=== PATIENT | male | born 1985 | race Hispanic/Latino ===

== ENCOUNTER 2022-05-26 12:32 | Emergency (ER) | payer SELFPAY ==
[2022-05-26] MEDS ORDERED: EPINEPHrine 1 MG/10 ML Abboject SYRINGE ONE (12:36)
[2022-05-26] MEDS ORDERED: NOREPINEPHRINE 8 MG/250 ML-D5W 250 ML ONE (12:44)
[2022-05-26] MEDS ORDERED: EPINEPHrine 1 MG/ML VIAL ONE (13:11)
[2022-05-26 13:34] LABS: #Basophils 0.1 thou/uL (0.0-0.2); #Eosinphils 0.1 thou/uL (0.0-0.7); #Lymphocytes 4.5 thou/uL (1.20-3.40); #Monocytes 0.8 thou/uL (0.11-0.59); #Neutrophils 4.1 thou/uL (1.40-6.50); %Basophils 1.3 % (0.0-1.0); %Lymphocytes 46.5 % (21.0-51.0); %Monocytes 8.6 % (0.0-10.0); %Neutrophils 42.6 % (42.0-75.0); Hemoglobin 15.8 g/dL (14.0-18.0); Mean Corpuscular HGB CONC 31.6 g/dL (32.0-36.0); Mean Platelet Volume 7.3 fL (7.4-10.4); Platelet Count 294 thou/uL (130-400); RBC Distribution Width 12.8 % (11.5-14.5); Red Blood Cell (RBC) Count 4.93 mill/uL (4.70-6.10); White Blood Cell (WBC) Count 9.6 thou/uL (4.8-10.8)
[2022-05-26 13:44] LABS: INR-International Normal Ratio 1.1; PTT 26.7 sec (22.9-36.1); Prothrombin Time 14.6 sec (12.0-14.7)
[2022-05-26 13:53] LABS: ALT (SGPT) 116 U/L (8-55); AST (SGOT) 163 U/L (5-34); Albumin 4.5 g/dL (3.5-5.0); Alkaline Phosphatase 85 U/L (40-110); Anion Gap 38 mmol/L (10-20); BUN (Urea Nitrogen) 6 mg/dL (8.9-20.6); Bilirubin, Total 0.4 mg/dL (0.2-1.2); Calc. Creatinine Clearance 0 mL/min (70-130); Carbon Dioxide 13 mmol/L (22-29); Chloride 101 mmol/L (98-107); Estimated GFR 61; Globulin 3.7 g/dL (2.4-3.5); Glucose 224 mg/dL (70-105); Magnesium 3.7 mg/dL (1.6-2.6); Potassium 5.2 mmol/L (3.5-5.1); Protein, Total 8.2 g/dL (6.0-8.3); Sodium 147 mmol/L (136-145)
[2022-05-26] MEDS ORDERED: HYDROcodone/Acetaminophen 5/325 mg Tablet PO PRN (13:55)
[2022-05-26] MEDS ORDERED: Ondansetron PF 4 MG/2 ML Vial IVP PRN (13:55)
[2022-05-26] MEDS ORDERED: Acetaminophen 325 MG TAB PO PRN (13:55)
[2022-05-26 14:01] LABS: Actual Bicarbonate (HCO3a) 8.4 mEq/L (22-28); Analyzer IN Cardio ER; Base Excess (BEa) -27.9 mEq/L (-2.0 to +3.0); CO2 Tension 61.1 mmHg (35.0-45.0); Calcium, Ionized (arterial) 1.21 mmol/L (1.12-1.30); Carboxyhemoglobin (COHb) 2.2 gm% (0.0-3.0); Hemoglobin (Hb) 15.9 g/dL (14.0-18.0); O2 Tension (PaO2), arterial 298.4 mmHg (80.0-100.0); pH, Arterial 6.76 (7.35-7.45)
[2022-05-26 14:02] LABS: ALV-art Gradient 195.625 mmHg (0-20); Puncture Site Arterial Line
[2022-05-26] MEDS ORDERED: Sodium Bicarbonate 150 MEQ in Dextrose 5% in Water 1,000 ML IV SCH ×2 (14:30→16:30)
[2022-05-26] MEDS ORDERED: Piperacillin/Tazobactam 3.375 GM in Sodium Chloride 0.9% 100 ML IVPB SCH ×2 (14:30→16:00)
[2022-05-26] MEDS ORDERED: Dextrose 50% Abboject 50 ML SYRINGE SLOW IVP PRN (14:31)
[2022-05-26] MEDS ORDERED: Dextrose 5% in Water 1,000 ML IV PRN (14:31)
[2022-05-26] MEDS ORDERED: Iopamidol-370 76% 500 ML 1 ML ONE (14:35)
[2022-05-26] MEDS ORDERED: Calcium Chloride 1 GM/10 ML Abboject SYRINGE ONE (15:06)
[2022-05-26] MEDS: Sodium Bicarb 50 MEQ/50 ML VIAL ONE (15:10)
[2022-05-26] MEDS ORDERED: Sodium Bicarb 50 MEQ/50 ML Abboject 8.4% SYRINGE IVP SCH (15:15)
[2022-05-26 15:26] LABS: Bacteria/HPF 2+ HPF (None Seen); Bilirubin Negative (Negative); Blood, Urine 3+ (Negative); Clarity Cloudy (Clear); Glucose, Urine (Dipstick) Normal (Negative); Ketone, Urine Trace mg/dL (Negative); Leukocyte Negative Leu/uL (Negative); Nitrite Negative (Negative); Protein, Urine (Dipstick) 100 mg/dL (Neg-Trace); RBC/HPF 0-3 HPF (0-3); Specific Gravity, Urine 1.033 (1.002-1.036); Squamous Epithelial 0-3 HPF (0-3); Urobilinogen Normal mg/dL (Less than 2)
[2022-05-26 15:27] LABS: Urine Culture Reflex Yes Yes
[2022-05-26 15:33] LABS: Amphetamine Not Detected (NotDetected); Barbiturates Screen Not Detected (NotDetected); Benzodiazepine Screen Not Detected (NotDetected); Cocaine Metabolite Screen Not Detected (NotDetected); Methadone Not Detected (NotDetected); Methamphetamine Not Detected (NotDetected); Opiate Screen Not Detected (NotDetected); Oxycodone Screen Not Detected (NotDetected); Phencyclidine (PCP) Not Detected (NotDetected); THC/Cannabinoid Screen Detected (NotDetected); Tricyclic Screen Not Detected (NotDetected)
[2022-05-26] MEDS ORDERED: Calcium Chloride 1 GM/10 ML Abboject SYRINGE IVP SCH (16:00)
[2022-05-26 16:47] LABS: Creatinine, Urine 38.52 mg/dL (63-166)
[2022-05-26] MEDS ORDERED: Sodium Bicarb 50 MEQ/50 ML VIAL IVP SCH ×2 (18:00→18:45)
[2022-05-26 18:02] LABS: Actual Bicarbonate (HCO3a) 28.5 mEq/L (22-28); Base Excess (BEa) -1.7 mEq/L (-2.0 to +3.0); Calcium, Ionized (arterial) 1.02 mmol/L (1.12-1.30); Carboxyhemoglobin (COHb) 0.3 gm% (0.0-3.0); Hemoglobin (Hb) 17.9 g/dL (14.0-18.0); O2 Tension (PaO2), arterial 94.1 mmHg (80.0-100.0); Potassium - ABG Lab 4.42 mmol/L (3.70-5.30)
[2022-05-26 18:03] LABS: CO2 Tension 70.7 mmHg (35.0-45.0); Puncture Site Arterial Line; pH, Arterial 7.22 (7.35-7.45)
[2022-05-26 18:04] LABS: ALV-art Gradient 530.525 mmHg (0-20)
[2022-05-26 18:10] LABS: Lactic Acid 11.2 mmol/L (0.5-2.2)
[2022-05-26] MEDS ORDERED: Sodium Chloride 0.9% 500 ML IV SCH (18:30)
[2022-05-26] MEDS: NOREPINEPHRINE 8 MG/250 ML-D5W 250 ML IVPB SCH ×2 (18:30→20:44)
[2022-05-26] MEDS: Sodium Bicarbonate 150 MEQ in Dextrose 5% in Water 1,000 ML IV SCH (18:31)
[2022-05-26] MEDS ORDERED: Refresh Lacri-lube Opth Oint 7 GM TUBE EA EYE PRN (19:24)
[2022-05-26] MEDS: Piperacillin/Tazobactam 3.375 GM in Sodium Chloride 0.9% 100 ML IVPB SCH (19:57)
[2022-05-26 20:09] LABS: Lactic Acid 11.2 mmol/L (0.5-2.2)
[2022-05-26 20:18] LABS: Anion Gap 28 mmol/L (10-20); BUN (Urea Nitrogen) 15 mg/dL (8.9-20.6); Calc. Creatinine Clearance 61 mL/min (70-130); Calcium 7.9 mg/dL (7.8-10.44); Carbon Dioxide 21 mmol/L (22-29); Chloride 101 mmol/L (98-107); Estimated GFR 41; Glucose 102 mg/dL (70-105); Sodium 146 mmol/L (136-145)
[2022-05-26] MEDS: Vasopressin 20 UNIT, Admixture Fee 1 EACH in Sodium Chloride 0.9% 50 ML IV SCH (20:46)
[2022-05-26] MEDS: EPINEPHrine 4 MG in Dextrose 5% in Water 250 ML IV SCH (20:47)
[2022-05-26] MEDS ORDERED: Famotidine/PF 20 mg/2ml Vial SLOW IVP SCH (21:00)
[2022-05-27] MEDS: HumaLOG 300 UNITS/3 ML VIAL SC PRN ×3 (00:40→10:31)
[2022-05-27] MEDS: Sodium Bicarbonate 150 MEQ in Dextrose 5% in Water 1,000 ML IV SCH ×2 (00:56→16:15)
[2022-05-27] MEDS: NOREPINEPHRINE 8 MG/250 ML-D5W 250 ML IVPB SCH ×5 (01:01→16:30)
[2022-05-27] MEDS: Vasopressin 20 UNIT, Admixture Fee 1 EACH in Sodium Chloride 0.9% 50 ML IV SCH ×3 (02:38→17:30)
[2022-05-27] MEDS: Piperacillin/Tazobactam 3.375 GM in Sodium Chloride 0.9% 100 ML IVPB SCH ×3 (03:09→19:31)
[2022-05-27 04:52] LABS: Hemoglobin 16.4 g/dL (14.0-18.0); Mean Corpuscular HGB CONC 32.7 g/dL (32.0-36.0); Mean Corpuscular Hemoglobin 31.5 pg (27.0-31.0); Mean Corpuscular Volume 96.3 fL (78.0-98.0); Mean Platelet Volume 7.3 fL (7.4-10.4); Platelet Count 139 thou/uL (130-400); RBC Distribution Width 12.7 % (11.5-14.5); Red Blood Cell (RBC) Count 5.21 mill/uL (4.70-6.10); White Blood Cell (WBC) Count 9.4 thou/uL (4.8-10.8)
[2022-05-27 05:12] LABS: Lactic Acid 5.2 mmol/L (0.5-2.2)
[2022-05-27 05:17] LABS: ALT (SGPT) 224 U/L (8-55); AST (SGOT) 692 U/L (5-34); Albumin 3.4 g/dL (3.5-5.0); Alkaline Phosphatase 66 U/L (40-110); Anion Gap 21 mmol/L (10-20); BUN (Urea Nitrogen) 32 mg/dL (8.9-20.6); Calc. Creatinine Clearance 34 mL/min (70-130); Calcium 7.2 mg/dL (7.8-10.44); Carbon Dioxide 28 mmol/L (22-29); Chloride 98 mmol/L (98-107); Estimated GFR 21; Globulin 2.7 g/dL (2.4-3.5); Glucose 168 mg/dL (70-105); Potassium 3.6 mmol/L (3.5-5.1); Protein, Total 6.1 g/dL (6.0-8.3); Sodium 143 mmol/L (136-145)
[2022-05-27] MEDS: EPINEPHrine 4 MG in Dextrose 5% in Water 250 ML IV SCH ×2 (06:05→10:00)
[2022-05-27 07:45] LABS: Base Excess (BEa) -0.8 mEq/L (-2.0 to +3.0); Calcium, Ionized (arterial) 0.88 mmol/L (1.12-1.30); Carboxyhemoglobin (COHb) 0.8 gm% (0.0-3.0); Hemoglobin (Hb) 15.9 g/dL (14.0-18.0); O2 Tension (PaO2), arterial 175.5 mmHg (80.0-100.0); Potassium - ABG Lab 2.99 mmol/L (3.70-5.30)
[2022-05-27] MEDS ORDERED: Sodium Chloride 0.9% 1,000 ML IV SCH (07:45)
[2022-05-27 07:48] LABS: CO2 Tension 70.8 mmHg (35.0-45.0); Puncture Site Arterial Line; pH, Arterial 7.23 (7.35-7.45)
[2022-05-27] MEDS ORDERED: Hydrocortisone Sod Succ/PF 100 mg/2 ml Vial IVP SCH (08:00)
[2022-05-27] MEDS ORDERED: FLU VACC QS2022-23(6MOS UP)/PF 60 MCG/0.5 ML SYRINGE IM ONE (09:00)
[2022-05-27] MEDS ORDERED: Famotidine/PF 20 mg/2ml Vial SLOW IVP SCH (09:00)
[2022-05-27] MEDS ORDERED: Enoxaparin Sodium 30 MG/0.3 ML SYRINGE SC SCH (09:00)
[2022-05-27] MEDS: Sodium Chloride 0.9% 1,000 ML IV SCH ×2 (09:30→17:49)
[2022-05-27 10:05] VITALS: BMI 29.5
[2022-05-27] MEDS: Hydrocortisone Sod Succ/PF 100 mg/2 ml Vial IVP SCH ×2 (12:47→19:31)
[2022-05-27 18:19] VITALS: BP 95/61
[2022-05-27 18:35] VITALS: TEMP 100.5
== END 2022-05-27 15:26 | disposition expired ==
LOC: ERS 12:32 → CCU 14:39 → UNDOADMIN 14:39 → UNDODISIN 05-27 15:26 → CCU 05-27 15:26
DX: I46.9 Cardiac arrest, cause unspecified (principal); T75.1XXA Unspecified effects of drowning and nonfatal submersion, initial encounter
CPT/HCPCS: 36415; 36416; 36556; 36620; 70450; 71045; 71260; 72125; 74177; 78610; 80053; 80306; 81001; 82550; 82570; 82805; 83605; 83735; 84156; 84300; 84484; 85025; 85610; 85730; 86850; 86900; 86901; 87070; 87086; 87205; 92950; 93005; 94002; 94003; 95816; 95819; 95957; 96365; 96366; 96368; A9521; J0171; J1650; J1720; J1815; J2543; J3490; J7050; J7070; Q9967; S0028

== ENCOUNTER 2022-05-27 15:26 | Inpatient (IN) | payer OTHER ==
[2022-05-27] MEDS ORDERED: HUMULIN R 100 UNITS in Sodium Chloride 0.9% 100 ML IVPB SCH (20:30)
[2022-05-27] MEDS ORDERED: MINERAL OIL/WHITE PETROLATUM 3.5 GM TUBE EA EYE PRN (20:33)
[2022-05-27] MEDS ORDERED: NOREPINEPHRINE 8 MG/250 ML-D5W 250 ML IVPB SCH (20:45)
[2022-05-27] MEDS ORDERED: Vasopressin 20 UNIT, Admixture Fee 1 EACH in Sodium Chloride 0.9% 50 ML IV SCH (20:45)
[2022-05-27] MEDS ORDERED: Sodium Bicarbonate 150 MEQ in Dextrose 5% in Water 1,000 ML IV SCH (20:45)
[2022-05-27] MEDS ORDERED: Hydrocortisone Sod Succ/PF 100 mg/2 ml Vial IVP SCH (20:45)
[2022-05-27] MEDS ORDERED: Albumin 25% 25 GM/100 ML BOT IVPB SCH (20:45)
[2022-05-27] MEDS ORDERED: EPINEPHrine 4 MG in Dextrose 5% in Water 250 ML IV SCH (20:45)
[2022-05-27 21:19] LABS: Actual Bicarbonate (HCO3a) 11.3 mEq/L (22-28); Base Excess (BEa) -11.9 mEq/L (-2.0 to +3.0); Carboxyhemoglobin (COHb) 1.1 gm% (0.0-3.0); O2 Tension (PaO2), arterial 92.8 mmHg (80.0-100.0); Potassium - ABG Lab 1.08 mmol/L (3.70-5.30); pH, Arterial 7.44 (7.35-7.45)
[2022-05-27 21:25] LABS: CO2 Tension 17.1 mmHg (35.0-45.0); Hemoglobin (Hb) 5.6 g/dL (14.0-18.0)
[2022-05-27 21:25] LABS: Hemoglobin 15.1 g/dL (14.0-18.0)
[2022-05-27 21:26] LABS: ALV-art Gradient 242.325 mmHg (0-20); Puncture Site ALINE
[2022-05-27 21:27] LABS: Hemoglobin 15.3 g/dL (14.0-18.0); Mean Corpuscular HGB CONC 33.7 g/dL (32.0-36.0); Mean Corpuscular Hemoglobin 32.1 pg (27.0-31.0); Mean Corpuscular Volume 95.2 fL (78.0-98.0); RBC Distribution Width 12.5 % (11.5-14.5); Red Blood Cell (RBC) Count 4.78 mill/uL (4.70-6.10); White Blood Cell (WBC) Count 10.7 thou/uL (4.8-10.8)
[2022-05-27 21:36] LABS: INR-International Normal Ratio 1.4; Prothrombin Time 17.6 sec (12.0-14.7)
[2022-05-27 21:37] LABS: PTT 42.6 sec (22.9-36.1)
[2022-05-27 21:47] LABS: ALT (SGPT) 205 U/L (8-55); AST (SGOT) 486 U/L (5-34); Albumin 2.7 g/dL (3.5-5.0); Alkaline Phosphatase 36 U/L (40-110); Anion Gap 22 mmol/L (10-20); BUN (Urea Nitrogen) 44 mg/dL (8.9-20.6); Bilirubin, Total 0.8 mg/dL (0.2-1.2); Calc. Creatinine Clearance 0 mL/min (70-130); Calcium 5.4 mg/dL (7.8-10.44); Carbon Dioxide 27 mmol/L (22-29); Chloride 92 mmol/L (98-107); Estimated GFR 18; Globulin 2.4 g/dL (2.4-3.5); Glucose 169 mg/dL (70-105); Lipase 183 U/L (8-78); Magnesium 1.4 mg/dL (1.6-2.6); Phosphorus 5.3 mg/dL (2.3-4.7); Potassium 3.6 mmol/L (3.5-5.1); Protein, Total 5.1 g/dL (6.0-8.3); Sodium 137 mmol/L (136-145)
[2022-05-27 21:53] LABS: Band 26 % (5-11); Lymphocytes 11 % (21-51); MDiff Complete? YES; Mean Platelet Volume 8.4 fL (7.4-10.4); Metamyelocyte 13 % (0-0); Monocytes 6 % (0-10); Myelocyte 1 % (0-0); Neutrophil 43 % (42-75); Platelet Count 97 thou/uL (130-400); Platelet Morphology Comment Appears Decreased
[2022-05-27 21:57] LABS: CKMB 135.2 ng/mL (0-6.6); Troponin I 1.479 ng/mL (< 0.028)
[2022-05-27] MEDS: Lactated Ringer's 1,000 ML IV SCH (22:15)
[2022-05-27] MEDS: Phytonadione 10 MG/ML AMP SLOW IVP SCH (22:15)
[2022-05-27] MEDS: Albuterol Sulfate 2.5 mg/3 ml Neb NEB SCH (22:33)
[2022-05-27 22:42] LABS: CK (CPK) 13194 U/L (30-200)
[2022-05-27 23:18] VITALS: BMI 20.2
[2022-05-28 00:03] LABS: Lactic Acid 5.5 mmol/L (0.5-2.2)
[2022-05-28] MEDS ORDERED: Magnesium Sulfate In Water 4 GM in Premix Bag 1 BAG IVPB SCH (00:30)
[2022-05-28] MEDS ORDERED: Potassium Chloride 20 MEQ in Premix Bag 1 BAG IVPB SCH ×2 (00:30→23:15)
[2022-05-28] MEDS ORDERED: Calcium Gluconate 13.8 MEQ in Sodium Chloride 0.9% 100 ML IVPB SCH (00:45)
[2022-05-28 00:48] LABS: Base Excess (BEa) 4.1 mEq/L (-2.0 to +3.0); Calcium, Ionized (arterial) 0.72 mmol/L (1.12-1.30); Carboxyhemoglobin (COHb) 1.2 gm% (0.0-3.0); Hemoglobin (Hb) 13.3 g/dL (14.0-18.0); O2 Tension (PaO2), arterial 277.4 mmHg (80.0-100.0); Potassium - ABG Lab 3.74 mmol/L (3.70-5.30); pH, Arterial 7.32 (7.35-7.45)
[2022-05-28 00:56] LABS: CO2 Tension 63.9 mmHg (35.0-45.0); Puncture Site ALINE
[2022-05-28 00:57] LABS: ALV-art Gradient 355.725 mmHg (0-20)
[2022-05-28 01:59] LABS: Bilirubin Negative (Negative); Blood, Urine 3+ (Negative); Clarity Extra Turbid (Clear); Glucose, Urine (Dipstick) 50 mg/dL (Negative); Ketone, Urine Trace mg/dL (Negative); Leukocyte Negative Leu/uL (Negative); Nitrite Negative (Negative); Protein, Urine (Dipstick) 70 mg/dL (Neg-Trace); Specific Gravity, Urine 1.027 (1.002-1.036); Urobilinogen Normal mg/dL (Less than 2); pH, Urine 5.5 (5.0-9.0)
[2022-05-28 02:03] LABS: Bacteria/HPF 1+ HPF (None Seen); Squamous Epithelial 0-3 HPF (0-3)
[2022-05-28] MEDS: Phytonadione 10 MG/ML AMP SLOW IVP SCH (02:03)
[2022-05-28 02:04] LABS: RBC/HPF 0-3 HPF (0-3); WBC/HPF 0-3 HPF (0-3)
[2022-05-28] MEDS: Albuterol Sulfate 2.5 mg/3 ml Neb NEB SCH ×6 (02:18→22:13)
[2022-05-28] MEDS ORDERED: Piperacillin/Tazobactam 3.375 GM in Sodium Chloride 0.9% 100 ML IVPB SCH (04:00)
[2022-05-28 04:06] LABS: Actual Bicarbonate (HCO3a) 33.3 mEq/L (22-28); Base Excess (BEa) 7.6 mEq/L (-2.0 to +3.0); CO2 Tension 51.6 mmHg (35.0-45.0); Calcium, Ionized (arterial) 0.74 mmol/L (1.12-1.30); Carboxyhemoglobin (COHb) 0.9 gm% (0.0-3.0); Hemoglobin (Hb) 12.7 g/dL (14.0-18.0); O2 Tension (PaO2), arterial 87.2 mmHg (80.0-100.0); pH, Arterial 7.43 (7.35-7.45)
[2022-05-28 04:08] LABS: Puncture Site Arterial Line
[2022-05-28 04:28] LABS: ALT (SGPT) 163 U/L (8-55); AST (SGOT) 372 U/L (5-34); Alkaline Phosphatase 26 U/L (40-110); Anion Gap 21 mmol/L (10-20); BUN (Urea Nitrogen) 48 mg/dL (8.9-20.6); Bilirubin, Total 0.9 mg/dL (0.2-1.2); Calc. Creatinine Clearance 18 mL/min (70-130); Carbon Dioxide 32 mmol/L (22-29); Chloride 88 mmol/L (98-107); Estimated GFR 14; Glucose 138 mg/dL (70-105); Magnesium 2.4 mg/dL (1.6-2.6); Potassium 4.2 mmol/L (3.5-5.1); Sodium 137 mmol/L (136-145)
[2022-05-28 04:29] LABS: Phosphorus 7.2 mg/dL (2.3-4.7)
[2022-05-28] MEDS ORDERED: Furosemide 100 MG/10 ML VIAL SLOW IVP SCH (04:30)
[2022-05-28 04:35] LABS: CKMB 96.3 ng/mL (0-6.6); Calcium 5.9 mg/dL (7.8-10.44); Lactic Acid 4.4 mmol/L (0.5-2.2); Troponin I 1.398 ng/mL (< 0.028)
[2022-05-28 04:43] LABS: INR-International Normal Ratio 1.6; PTT 47.4 sec (22.9-36.1); Prothrombin Time 19.3 sec (12.0-14.7)
[2022-05-28] MEDS: Albumin 25% 25 GM/100 ML BOT IVPB SCH (04:48)
[2022-05-28] MEDS: Hydrocortisone Sod Succ/PF 100 mg/2 ml Vial IVP SCH ×3 (05:01→22:34)
[2022-05-28 05:19] LABS: Hemoglobin 12.8 g/dL (14.0-18.0); Mean Corpuscular HGB CONC 33.3 g/dL (32.0-36.0); Mean Corpuscular Hemoglobin 31.6 pg (27.0-31.0); Mean Corpuscular Volume 94.9 fL (78.0-98.0); Red Blood Cell (RBC) Count 4.04 mill/uL (4.70-6.10)
[2022-05-28 05:23] LABS: Band 26 % (5-11); Lymphocytes 20 % (21-51); MDiff Complete? YES; Mean Platelet Volume 9.1 fL (7.4-10.4); Metamyelocyte 8 % (0-0); Monocytes 1 % (0-10); Neutrophil 45 % (42-75); Platelet Count 61 thou/uL (130-400); Platelet Morphology Comment Appears Decreased; RBC Distribution Width 12.5 % (11.5-14.5); RBC Morphology Normal
[2022-05-28] MEDS ORDERED: Calcium Gluconate 9.2 MEQ in Sodium Chloride 0.9% 100 ML IVPB SCH ×2 (05:45→22:00)
[2022-05-28 06:08] LABS: CK (CPK) 10347 U/L (30-200)
[2022-05-28 08:23] LABS: Actual Bicarbonate (HCO3a) 29.1 mEq/L (22-28); Base Excess (BEa) 3.1 mEq/L (-2.0 to +3.0); CO2 Tension 50.5 mmHg (35.0-45.0); Calcium, Ionized (arterial) 0.79 mmol/L (1.12-1.30); Carboxyhemoglobin (COHb) 0.3 gm% (0.0-3.0); Hemoglobin (Hb) 11.6 g/dL (14.0-18.0); O2 Tension (PaO2), arterial 342.2 mmHg (80.0-100.0); Potassium - ABG Lab 3.54 mmol/L (3.70-5.30); pH, Arterial 7.38 (7.35-7.45)
[2022-05-28 08:24] LABS: ALV-art Gradient 307.675 mmHg (0-20); Puncture Site Arterial Line
[2022-05-28] MEDS: Lactated Ringer's 1,000 ML IV SCH ×2 (09:00→23:57)
[2022-05-28 10:19] LABS: Hemoglobin 11.9 g/dL (14.0-18.0); Mean Corpuscular HGB CONC 33.2 g/dL (32.0-36.0); Mean Corpuscular Hemoglobin 31.6 pg (27.0-31.0); RBC Distribution Width 12.5 % (11.5-14.5); Red Blood Cell (RBC) Count 3.77 mill/uL (4.70-6.10); White Blood Cell (WBC) Count 9.1 thou/uL (4.8-10.8)
[2022-05-28 10:20] LABS: Mean Platelet Volume 8.3 fL (7.4-10.4)
[2022-05-28 10:27] LABS: Platelet Count 52 thou/uL (130-400)
[2022-05-28 10:30] LABS: INR-International Normal Ratio 1.5; Prothrombin Time 18.1 sec (12.0-14.7)
[2022-05-28 10:31] LABS: PTT 47.4 sec (22.9-36.1)
[2022-05-28 10:37] LABS: Albumin 3.7 g/dL (3.5-5.0); Calcium 6.4 mg/dL (7.8-10.44); Chloride 86 mmol/L (98-107); Potassium 3.7 mmol/L (3.5-5.1); Sodium 137 mmol/L (136-145)
[2022-05-28 10:44] LABS: Band 17 % (5-11); Lymphocytes 11 % (21-51); MDiff Complete? YES; Monocytes 10 % (0-10); Neutrophil 59 % (42-75); Platelet Morphology Comment Appears Decreased; RBC Morphology Normal; Reactive Lymphocytes 3 % (0-10)
[2022-05-28 11:22] LABS: CKMB 81.2 ng/mL (0-6.6); Critical Call CKMB RESULT DECREASING; Critical Call Chem Troponin I RESULT DECREASING
[2022-05-28 12:08] LABS: Lactic Acid 7.2 mmol/L (0.5-2.2)
[2022-05-28 12:14] LABS: Bacteria/HPF None Seen HPF (None Seen); Bilirubin Negative (Negative); Blood, Urine 3+ (Negative); Clarity Turbid (Clear); Glucose, Urine (Dipstick) 50 mg/dL (Negative); Ketone, Urine Negative (Negative); Leukocyte Negative Leu/uL (Negative); Nitrite Negative (Negative); Protein, Urine (Dipstick) 50 mg/dL (Neg-Trace); Specific Gravity, Urine 1.014 (1.002-1.036); Squamous Epithelial 0-3 HPF (0-3); Urobilinogen Normal mg/dL (Less than 2); pH, Urine 5.5 (5.0-9.0)
[2022-05-28 12:15] LABS: WBC/HPF 0-3 HPF (0-3)
[2022-05-28] MEDS ORDERED: Bumetanide 1 MG/4 ML VIAL IVP SCH ×2 (12:30→17:45)
[2022-05-28 12:34] LABS: Globulin 2.1 g/dL (2.4-3.5); Glucose 159 mg/dL (70-105); Protein, Total 5.8 g/dL (6.0-8.3)
[2022-05-28 12:36] LABS: Anion Gap 29 mmol/L (10-20); Bilirubin, Total 1.2 mg/dL (0.2-1.2); Carbon Dioxide 25 mmol/L (22-29)
[2022-05-28 12:37] LABS: Alkaline Phosphatase 32 U/L (40-110)
[2022-05-28 12:38] LABS: BUN (Urea Nitrogen) 53 mg/dL (8.9-20.6); Calc. Creatinine Clearance 24 mL/min (70-130); Estimated GFR 13
[2022-05-28 12:39] LABS: AST (SGOT) 346 U/L (5-34)
[2022-05-28 12:40] LABS: ALT (SGPT) 153 U/L (8-55); Lipase 64 U/L (8-78)
[2022-05-28] MEDS: CALCIUM GLUC 1GM/NS 50ML 1 GM in Premix Bag 1 BAG IVPB SCH ×2 (12:46→14:35)
[2022-05-28 13:10] LABS: CK (CPK) 9505 U/L (30-200)
[2022-05-28 13:24] LABS: Phosphorus 8.7 mg/dL (2.3-4.7)
[2022-05-28 13:51] LABS: Magnesium 2.3 mg/dL (1.6-2.6)
[2022-05-28] MEDS: Piperacillin/Tazobactam 3.375 GM in Sodium Chloride 0.9% 100 ML IVPB SCH (16:05)
[2022-05-28 16:42] LABS: INR-International Normal Ratio 1.3; PTT 43.5 sec (22.9-36.1); Prothrombin Time 16.4 sec (12.0-14.7)
[2022-05-28 16:49] LABS: ALT (SGPT) 157 U/L (8-55); AST (SGOT) 342 U/L (5-34); Albumin 3.7 g/dL (3.5-5.0); Alkaline Phosphatase 33 U/L (40-110); Anion Gap 28 mmol/L (10-20); BUN (Urea Nitrogen) 58 mg/dL (8.9-20.6); Bilirubin, Direct 0.5 mg/dL (0.1-0.3); Bilirubin, Total 1.2 mg/dL (0.2-1.2); Calc. Creatinine Clearance 21 mL/min (70-130); Calcium 6.4 mg/dL (7.8-10.44); Carbon Dioxide 29 mmol/L (22-29); Chloride 86 mmol/L (98-107); Estimated GFR 10; Globulin 1.9 g/dL (2.4-3.5); Glucose 155 mg/dL (70-105); Lipase 50 U/L (8-78); Magnesium 2.3 mg/dL (1.6-2.6); Potassium 3.7 mmol/L (3.5-5.1); Protein, Total 5.6 g/dL (6.0-8.3); Sodium 139 mmol/L (136-145)
[2022-05-28 16:52] LABS: CKMB 57.9 ng/mL (0-6.6); Critical Call CKMB RESULT DECREASING; Critical Call Chem Troponin I RESULT DECREASING
[2022-05-28 16:55] LABS: Lactic Acid 6.1 mmol/L (0.5-2.2); Phosphorus 9.4 mg/dL (2.3-4.7)
[2022-05-28 17:29] LABS: CK (CPK) 9032 U/L (30-200)
[2022-05-28 17:34] LABS: Band 35 % (5-11); Hemoglobin 11.9 g/dL (14.0-18.0); Lymphocytes 9 % (21-51); MDiff Complete? YES; Mean Corpuscular HGB CONC 33.9 g/dL (32.0-36.0); Mean Corpuscular Volume 94.6 fL (78.0-98.0); Mean Platelet Volume 9.1 fL (7.4-10.4); Monocytes 31 % (0-10); Neutrophil 25 % (42-75); Platelet Count 54 thou/uL (130-400); Platelet Morphology Comment Appears Decreased; RBC Distribution Width 12.6 % (11.5-14.5); RBC Morphology Normal; Red Blood Cell (RBC) Count 3.72 mill/uL (4.70-6.10); White Blood Cell (WBC) Count 10.2 thou/uL (4.8-10.8)
[2022-05-28] MEDS ORDERED: Chlorothiazide Sodium 500 MG VIAL IV SCH ×2 (17:45→19:00)
[2022-05-28 18:41] LABS: Actual Bicarbonate (HCO3a) 29.3 mEq/L (22-28); Base Excess (BEa) 4.9 mEq/L (-2.0 to +3.0); CO2 Tension 42.9 mmHg (35.0-45.0); Calcium, Ionized (arterial) 0.72 mmol/L (1.12-1.30); Carboxyhemoglobin (COHb) 0.5 gm% (0.0-3.0); Hemoglobin (Hb) 11.9 g/dL (14.0-18.0); O2 Tension (PaO2), arterial 306.3 mmHg (80.0-100.0); Potassium - ABG Lab 3.65 mmol/L (3.70-5.30); pH, Arterial 7.45 (7.35-7.45)
[2022-05-28] MEDS: DOBUTamine 500 mg/250 ml 500 MG in Premix Bag 1 BAG IVPB SCH ×2 (18:43→22:34)
[2022-05-28 19:02] LABS: Puncture Site ALINE
[2022-05-28 19:03] LABS: ALV-art Gradient 353.075 mmHg (0-20)
[2022-05-28] MEDS ORDERED: Sterile Water 40 ML ONE (19:06)
[2022-05-28 22:26] LABS: Hemoglobin 11.4 g/dL (14.0-18.0); Mean Corpuscular HGB CONC 33.6 g/dL (32.0-36.0); Mean Corpuscular Hemoglobin 31.9 pg (27.0-31.0); Mean Platelet Volume 8.8 fL (7.4-10.4); Platelet Count 42 thou/uL (130-400); RBC Distribution Width 12.5 % (11.5-14.5); Red Blood Cell (RBC) Count 3.58 mill/uL (4.70-6.10); White Blood Cell (WBC) Count 7.5 thou/uL (4.8-10.8)
[2022-05-28 22:32] LABS: INR-International Normal Ratio 1.3; Prothrombin Time 16.1 sec (12.0-14.7)
[2022-05-28 22:40] LABS: ALT (SGPT) 143 U/L (8-55); AST (SGOT) 289 U/L (5-34); Albumin 3.4 g/dL (3.5-5.0); Alkaline Phosphatase 39 U/L (40-110); Anion Gap 25 mmol/L (10-20); BUN (Urea Nitrogen) 63 mg/dL (8.9-20.6); Bilirubin, Direct 0.6 mg/dL (0.1-0.3); Bilirubin, Total 1.2 mg/dL (0.2-1.2); Calc. Creatinine Clearance 19 mL/min (70-130); Calcium 6.3 mg/dL (7.8-10.44); Carbon Dioxide 31 mmol/L (22-29); Chloride 85 mmol/L (98-107); Estimated GFR 10; Globulin 2.3 g/dL (2.4-3.5); Glucose 202 mg/dL (70-105); Lipase 53 U/L (8-78); Magnesium 2.3 mg/dL (1.6-2.6); Potassium 3.4 mmol/L (3.5-5.1); Protein, Total 5.7 g/dL (6.0-8.3); Sodium 138 mmol/L (136-145)
[2022-05-28 22:42] LABS: Lactic Acid 4.7 mmol/L (0.5-2.2)
[2022-05-28 22:48] LABS: Band 18 % (5-11); Hypochromia SLIGHT = 6-15 cells (100X) (0-5/hpf); Lymphocytes 4 % (21-51); MDiff Complete? YES; Monocytes 30 % (0-10); Neutrophil 48 % (42-75); Platelet Morphology Comment Appears Decreased
[2022-05-28 22:51] LABS: Critical Call Chem Troponin I RESULT DECREASING
[2022-05-28 22:53] LABS: CK (CPK) Greater than 7922 U/L (30-200); CKMB 54.9 ng/mL (0-6.6); Phosphorus 9.4 mg/dL (2.3-4.7)
[2022-05-29 00:35] LABS: Actual Bicarbonate (HCO3a) 29.3 mEq/L (22-28); Base Excess (BEa) 3.9 mEq/L (-2.0 to +3.0); CO2 Tension 47.7 mmHg (35.0-45.0); Calcium, Ionized (arterial) 0.75 mmol/L (1.12-1.30); Carboxyhemoglobin (COHb) 0.7 gm% (0.0-3.0); Hemoglobin (Hb) 11.4 g/dL (14.0-18.0); O2 Tension (PaO2), arterial 180.5 mmHg (80.0-100.0); Potassium - ABG Lab 3.32 mmol/L (3.70-5.30); pH, Arterial 7.41 (7.35-7.45)
[2022-05-29 00:42] LABS: Puncture Site ALINE
[2022-05-29 00:43] LABS: ALV-art Gradient 472.875 mmHg (0-20)
[2022-05-29 02:11] LABS: Bilirubin Negative (Negative); Blood, Urine 3+ (Negative); Clarity Turbid (Clear); Glucose, Urine (Dipstick) 50 mg/dL (Negative); Ketone, Urine Negative (Negative); Leukocyte Negative Leu/uL (Negative); Nitrite Negative (Negative); Protein, Urine (Dipstick) 70 mg/dL (Neg-Trace); Specific Gravity, Urine 1.014 (1.002-1.036); Squamous Epithelial 0-3 HPF (0-3); Urobilinogen Normal mg/dL (Less than 2); pH, Urine 5.5 (5.0-9.0)
[2022-05-29 02:12] LABS: Bacteria/HPF 1+ HPF (None Seen)
[2022-05-29] MEDS: Albuterol Sulfate 2.5 mg/3 ml Neb NEB SCH ×3 (02:16→10:30)
[2022-05-29] MEDS: Piperacillin/Tazobactam 3.375 GM in Sodium Chloride 0.9% 100 ML IVPB SCH (04:06)
[2022-05-29 04:40] LABS: INR-International Normal Ratio 1.3; PTT 40.2 sec (22.9-36.1); Prothrombin Time 16.3 sec (12.0-14.7)
[2022-05-29 04:46] LABS: Lactic Acid 4.3 mmol/L (0.5-2.2)
[2022-05-29 04:58] LABS: ALT (SGPT) 137 U/L (8-55); AST (SGOT) 254 U/L (5-34); Albumin 3.3 g/dL (3.5-5.0); Alkaline Phosphatase 42 U/L (40-110); Anion Gap 28 mmol/L (10-20); BUN (Urea Nitrogen) 66 mg/dL (8.9-20.6); Bilirubin, Total 1.1 mg/dL (0.2-1.2); Calc. Creatinine Clearance 19 mL/min (70-130); Calcium 6.4 mg/dL (7.8-10.44); Carbon Dioxide 28 mmol/L (22-29); Chloride 86 mmol/L (98-107); Estimated GFR 9; Globulin 2.2 g/dL (2.4-3.5); Glucose 186 mg/dL (70-105); Magnesium 2.4 mg/dL (1.6-2.6); Phosphorus 8.6 mg/dL (2.3-4.7); Potassium 3.3 mmol/L (3.5-5.1); Protein, Total 5.5 g/dL (6.0-8.3); Sodium 139 mmol/L (136-145)
[2022-05-29 04:59] LABS: Bilirubin, Direct 0.5 mg/dL (0.1-0.3)
[2022-05-29 05:09] LABS: CKMB 47.5 ng/mL (0-6.6)
[2022-05-29] MEDS: Albumin 25% 25 GM/100 ML BOT IVPB SCH (05:09)
[2022-05-29 05:10] LABS: Band 20 % (5-11); Hemoglobin 10.6 g/dL (14.0-18.0); Hypochromia SLIGHT = 6-15 cells (100X) (0-5/hpf); Lymphocytes 6 % (21-51); MDiff Complete? YES; Mean Corpuscular HGB CONC 34.4 g/dL (32.0-36.0); Mean Corpuscular Hemoglobin 32.2 pg (27.0-31.0); Mean Corpuscular Volume 93.8 fL (78.0-98.0); Mean Platelet Volume 9.4 fL (7.4-10.4); Monocytes 20 % (0-10); Neutrophil 54 % (42-75); Platelet Count 34 thou/uL (130-400); Platelet Morphology Comment Appears Decreased; RBC Distribution Width 12.5 % (11.5-14.5); White Blood Cell (WBC) Count 5.6 thou/uL (4.8-10.8)
[2022-05-29] MEDS: Hydrocortisone Sod Succ/PF 100 mg/2 ml Vial IVP SCH (05:10)
[2022-05-29] MEDS: DOBUTamine 500 mg/250 ml 500 MG in Premix Bag 1 BAG IVPB SCH (05:10)
[2022-05-29 05:11] LABS: CK (CPK) 7110 U/L (30-200)
[2022-05-29] MEDS ORDERED: Potassium Chloride 40 MEQ in Premix Bag 1 BAG IVPB SCH (06:00)
[2022-05-29] MEDS ORDERED: Calcium Gluconate 9.2 MEQ in Sodium Chloride 0.9% 100 ML IVPB SCH (06:15)
[2022-05-29] MEDS ORDERED: Phenylephrine 40 MG in Sodium Chloride 0.9% 250 ML 250 ML IVPB SCH (06:30)
[2022-05-29 07:11] LABS: Actual Bicarbonate (HCO3a) 32.1 mEq/L (22-28); Base Excess (BEa) 6.2 mEq/L (-2.0 to +3.0); CO2 Tension 52.7 mmHg (35.0-45.0); Calcium, Ionized (arterial) 0.75 mmol/L (1.12-1.30); Carboxyhemoglobin (COHb) 0.3 gm% (0.0-3.0); O2 Tension (PaO2), arterial 242.7 mmHg (80.0-100.0)
[2022-05-29 07:14] LABS: ALV-art Gradient 404.425 mmHg (0-20); Puncture Site Arterial Line
[2022-05-29 09:20] VITALS: TEMP 98.6
[2022-05-29 10:02] LABS: Hemoglobin 10.5 g/dL (14.0-18.0); Mean Corpuscular HGB CONC 33.6 g/dL (32.0-36.0); Mean Corpuscular Volume 95.1 fL (78.0-98.0); Mean Platelet Volume 8.8 fL (7.4-10.4); Platelet Count 37 thou/uL (130-400); RBC Distribution Width 12.6 % (11.5-14.5); Red Blood Cell (RBC) Count 3.27 mill/uL (4.70-6.10); White Blood Cell (WBC) Count 4.4 thou/uL (4.8-10.8)
[2022-05-29 10:11] LABS: Lactic Acid 2.7 mmol/L (0.5-2.2)
[2022-05-29 10:12] LABS: INR-International Normal Ratio 1.2; PTT 32.9 sec (22.9-36.1); Prothrombin Time 15.4 sec (12.0-14.7)
[2022-05-29 10:23] LABS: Band 66 % (5-11); Lymphocytes 4 % (21-51); MDiff Complete? YES; Metamyelocyte 3 % (0-0); Monocytes 7 % (0-10); Neutrophil 19 % (42-75); Platelet Morphology Comment Appears Decreased; RBC Morphology Normal; Reactive Lymphocytes 1 % (0-10)
[2022-05-29 10:44] LABS: CKMB 38.2 ng/mL (0-6.6)
[2022-05-29 11:25] VITALS: BP 86/29
[2022-05-29 11:41] LABS: Actual Bicarbonate (HCO3a) 39.7 mEq/L (22-28); Base Excess (BEa) 5.8 mEq/L (-2.0 to +3.0); Calcium, Ionized (arterial) 0.79 mmol/L (1.12-1.30); Carboxyhemoglobin (COHb) 0.8 gm% (0.0-3.0); Hemoglobin (Hb) 11.2 g/dL (14.0-18.0); Potassium - ABG Lab 3.96 mmol/L (3.70-5.30)
[2022-05-29] MEDS ORDERED: Sodium Bicarb 50 MEQ/50 ML Abboject 8.4% SYRINGE ONE (13:35)
[2022-05-29] MEDS ORDERED: EPINEPHrine 1 MG/10 ML Abboject SYRINGE ONE (13:35)
[2022-05-29 13:53] LABS: CO2 Tension 143.4 mmHg (35.0-45.0); pH, Arterial 7.06 (7.35-7.45)
[2022-05-29 13:54] LABS: O2 Tension (PaO2), arterial 56.6 mmHg (80.0-100.0); Puncture Site Arterial Line
== END 2022-05-29 14:55 | disposition expired | DRG 682 ==
LOC: SJX 15:26 → CCU 20:16
PROVIDERS: ADMIT Hospitalist; ATTEND Internal Medicine
PROC: 0BH17EZ Insertion of Endotracheal Airway into Trachea, Via Natural or Artificial Opening (ICD-10-PCS; principal; 2022-05-27)
PROC: 5A1945Z Respiratory Ventilation, 24-96 Consecutive Hours (ICD-10-PCS; 2022-05-27)
PROC: 0W9B30Z Drainage of Left Pleural Cavity with Drainage Device, Percutaneous Approach (ICD-10-PCS; 2022-05-29)
PROC: 5A12012 Performance of Cardiac Output, Single, Manual (ICD-10-PCS; 2022-05-29)
PROC: 04HY32Z Insertion of Monitoring Device into Lower Artery, Percutaneous Approach (ICD-10-PCS; 2022-05-29)
DX: N17.0 Acute kidney failure with tubular necrosis (principal); M62.82 Rhabdomyolysis; G93.1 Anoxic brain damage, not elsewhere classified; R57.0 Cardiogenic shock; E87.6 Hypokalemia
CPT/HCPCS: 36415; 36416; 71045; 80053; 81001; 82150; 82248; 82550; 82553; 82805; 82977; 83605; 83690; 83735; 84100; 84484; 85025; 85384; 85610; 85730; 93005; 93010; 93306; 94003; 94640; J0171; J0610; J1250; J1720; J1940; J2543; J3430; J3475; J3480; J3490; J7070; J7120; J7611; P9047